=== PATIENT | male | born 1955 | race Caucasian/White ===

== ENCOUNTER 2023-03-06 11:59 | Outpatient (CLI) | payer MEDICARE, SELFPAY | END 2023-03-06 12:00 | disposition home or self-care (01) | PROVIDERS: PCP Family Medicine; Visit Provider Family Medicine | DX: R42 Dizziness and giddiness (principal); I16.0 Hypertensive urgency; Z13.21 Encounter for screening for nutritional disorder; R53.83 Other fatigue | CPT/HCPCS: 80053; 80061; 82043; 82306; 82570; 84443 ==

== ENCOUNTER 2023-03-08 18:49 | Emergency (ER) | payer MEDICARE, SELFPAY ==
[2023-03-08 19:02] VITALS: BP 156/83; PULSE 70; RESP 16; TEMP 36.6; O2SAT 96; BMI 31.4
--- NOTE | 2023-03-08 19:39 | ED_ITS ---
HPI - General Adult General Chief complaint: Unspecified Complaint, Adult Stated complaint: Side effects from BP medications Time Seen by Provider: 03/08/23 19:11 History of Present Illness HPI narrative: This 67-year-old male recently started on lisinopril and feels like he may be having some adverse effects related to it. He does report some episodes of lightheadedness and has a subjective feeling of being short of breath. He is states that he is measured his blood pressure and the lowest 1 he recorded while taking lisinopril was a systolic value of 127. He states that his pressures about ways been higher than this. A he reports that he has been smoking a couple packs a day for almost 50 years but has cut back to like 6 cigarettes per day since starting this medicine. He does not report any chest pain. He does arrive with normal vital signs and his blood pressure is a bit elevated. Related Data Previous Rx's Medication Instructions Recorded lisinopril 10 mg tablet 10 mg PO QDAY #30 tabs 03/06/23 Allergies Allergy/AdvReac Type Severity Reaction Status Date / Time No Known Drug Allergies Allergy Verified 03/08/23 19:08 Review of Systems Status of ROS: Reports: 10 or more systems reviewed and unremarkable except as noted in History and below Narrative: Constitutional: No fevers, no weight gain or loss. Eyes: No discharge. No vision changes. HENT: No congestion, no sore throat, no ear pain. Cardiovascular: No chest pain, no palpitations. Respiratory: No wheezes, no cough. He reports some mild shortness of breath. Gastrointestinal: No abdominal pain, no vomiting, no diarrhea. Genitourinary: No dysuria, no hematuria. Musculoskeletal: Normal range of motion. Skin: No rashes, no pruritis. Neurological: No weakness, sensory change, speech change. He reports some episodes of lightheadedness. Endo/Heme/Allergies: No bruising or bleeding. No polydipsia. Pysch: no suicidality, no anxiety, no insomnia. All other systems reviewed and are negative. [facility] Medical History (Updated 03/08/23 @ 19:45 by Maximo Galeana MD) Acute upper respiratory infection ?J06.9 - Acute upper respiratory infection, unspecified (ICD-10) Surgical History (Updated 03/04/23 @ 11:37 by Teo Bell) History of umbilical hernia repair ?Z98.890 - Other specified postprocedural states (ICD-10) ?Z87.19 - Personal history of other diseases of the digestive system (ICD-10) History of shoulder surgery ?Z98.890 - Other specified postprocedural states (ICD-10) History of inguinal hernia repair ?Z98.890 - Other specified postprocedural states (ICD-10) ?Z87.19 - Personal history of other diseases of the digestive system (ICD-10) Family History (Updated 03/04/23 @ 11:39 by Teo Bell) Mother Cancer Social History (Updated 03/04/23 @ 11:39 by Teo eBll) Narrative: cigarette smoker- 1ppd x 45 years does not use illicit drugs Smoking Status: Current every day smoker How often do you have a drink containing alcohol: 2-4 times a month AUDIT-C Alcohol total score: 2 Non-prescribed substance use: denies use Exam Narrative: Exam Narrative: Constitutional: Well-developed, well-nourished, no acute distress. HEENT: Normocephalic, atraumatic. Neck: Normal range of motion. Nontender. Supple. Heart: Regular. No murmurs. Normal rate. Intact distal pulses. Lungs: Clear to auscultation. No chest discomfort. No wheezes, rhonchi, or rales. Abdomen: Normal bowel sounds. Nontender. No rebound tenderness. Genitalia: Deferred. Back: No midline tenderness. Normal range of motion. Extremities: Normal range of motion. No injury. Skin: Intact. No rash. Warm. No erythema or pallor. Neurologic: No altered sensation. No weakness. Alert and oriented. Psychiatric: No suicidality. No anxiety or depression. No insomnia. Nursing notes and vitals signs are reviewed. Const: Vital Signs, click to edit/add: Vital Signs - 24 hr 03/08/23 19:02 Temperature 97.8 F Pulse Rate [Left P ulse Oximeter] 70 Respiratory Rate 16 Blood Pressure [Ri ght Upper Arm] 156/83 H Pulse Oximetry 96 Oxygen Delivery Me thod Room Air Course Vital Signs Vital signs: Initial Vital Signs Temperature 97.8 F 03/08/23 19:02 Temperature Source Temporal Artery Scan 03/08/23 19:02 Pulse Rate 70 03/08/23 19:02 Respiratory Rate 16 03/08/23 19:02 Blood Pressure 156/83 H 03/08/23 19:02 Blood Pressure Mean 107 H 03/08/23 19:02 Blood Pressure Position Sitting 03/08/23 19:02 Pulse Oximetry 96 03/08/23 19:02 Oxygen Delivery Method Room Air 03/08/23 19:02 Vital Signs Temperature 97.8 F 03/08/23 19:02 Pulse Rate 70 03/08/23 19:02 Respiratory Rate 16 03/08/23 19:02 Blood Pressure 156/83 H 03/08/23 19:02 Pulse Oximetry 96 03/08/23 19:02 Oxygen Delivery Method Room Air 03/08/23 19:02 Temperature 97.8 F 03/08/23 19:02 Pulse Rate 70 03/08/23 19:02 Respiratory Rate 16 03/08/23 19:02 Blood Pressure 156/83 H 03/08/23 19:02 Pulse Oximetry 96 03/08/23 19:02 Oxygen Delivery Method Room Air 03/08/23 19:02 Medical Decision Making MDM Narrative Medical decision making narrative: This patient started lisinopril a few days ago and states that he would prefer not to be on any kind of medicine for his blood pressure. He has cut back significantly on smoking but wants to resume smoking a couple packs a day. His blood pressure medication is not likely explaining his symptoms however he does report some episodes of lightheadedness. These may be times when his blood pressure is lower than what is needed for good perfusion. I advised him to record his blood pressures regularly and especially if feeling lightheaded for information that can be presented to a follow-up appointment with his primary physician. I did also discuss lab and imaging options with the patient today. In a process of shared decision-making he declined these. He states that he had a thorough workup recently when the medicine was prescribed for him. At the time of discharge the patient appears safe for outpatient management. The treatment plan is reviewed along with written and verbal return precautions. Reasons to return and the importance of close followup were also reviewed. Discharge Plan Discharge Clinical Impression: Nicotine dependence, Hypertension Patient Disposition: Home, Self-Care Condition: Stable Additional Instructions: Continue current plans. Record blood pressures regularly for follow-up appointment with primary physician. Return if worsening. Prescriptions: No Action lisinopril 10 mg tablet 10 mg PO QDAY Qty: 30 1RF Follow Up/Referrals: Nichole Cutler DO [Primary Care Provider] - Stand Alone Forms: [employer] Instructions
== END 2023-03-08 19:54 | disposition home or self-care (01) ==
LOC: ED 19:48
PROVIDERS: Emergency Provider Emergency Medicine Emergency Medical Services; PCP Family Medicine
DX: I10 Essential (primary) hypertension (principal); F17.200 Nicotine dependence, unspecified, uncomplicated
CPT/HCPCS: 99283; 99284

== ENCOUNTER 2023-03-20 16:01 | Outpatient (CLI) | payer MEDICARE, SELFPAY | END 2023-03-20 16:02 | disposition home or self-care (01) | LOC: NFLDREF 03-23 11:33 | PROVIDERS: PCP Family Medicine; Referring Provider Family Medicine; Visit Provider Family Medicine | DX: R74.01 Elevation of levels of liver transaminase levels (principal) | CPT/HCPCS: 80074; 82728; 83540; 83550; 85610; 87522 ==

== ENCOUNTER 2023-04-02 13:49 | Outpatient (CLI) | payer MEDICARE, SELFPAY | END 2023-04-02 13:50 | disposition home or self-care (01) | PROVIDERS: PCP Family Medicine; Visit Provider Family Medicine | DX: Z00.00 Encounter for general adult medical examination without abnormal findings (principal); R74.01 Elevation of levels of liver transaminase levels; I16.0 Hypertensive urgency | CPT/HCPCS: 80053; 87522 ==

== ENCOUNTER 2023-06-16 10:38 | Outpatient (CLI) | payer MEDICARE, SELFPAY ==
--- NOTE | 2023-06-16 11:00 | CRLHL7_ITS ---
For Patients: As a result of the Century Cures Act, medical imaging exams and procedure reports are released immediately into your electronic medical record. You may view this report before your referring provider. If you have questions, please contact your health care provider. INDICATION: ELEVATED LIVER ENZYMES COMPARISON: none TECHNIQUE: Real time heck scale imaging and color Doppler analysis was performed of the right upper quadrant. FINDINGS: The patient`s liver is of normal size and has diffusely coarsened echogenicity. There is a normal appearance of the hepatic IVC and proximal abdominal aorta. There is no evidence of ascites. The gallbladder is of normal size and there is layering echogenic sludge along with layering echogenic stones within the gallbladder lumen. The gallbladder wall measures 2 mm in thickness. The common bile duct is of normal size and measures 4 mm in diameter at the level of the shelby hepatis. The pancreas appears normal. There is no evidence of a stone or hydronephrosis within the right kidney. The right kidney measures 10.5 cm in length. IMPRESSION: Moderate diffuse hepatic steatosis. No intrahepatic mass or ascites. Moderate amount of sludge and stones within the gallbladder lumen compatible with cholelithiasis. Dictated by Tunde Mejia MD @ 06/16/2023 11:44:00 AM (Electronically Signed)
== END 2023-06-16 10:39 | disposition home or self-care (01) ==
LOC: US 10:39
PROVIDERS: PCP Family Medicine; Visit Provider Internal Medicine
DX: R74.8 Abnormal levels of other serum enzymes (principal); K76.0 Fatty (change of) liver, not elsewhere classified; K82.9 Disease of gallbladder, unspecified
CPT/HCPCS: 76705

== ENCOUNTER 2023-09-15 14:28 | Outpatient (CLI) | payer MEDICARE, SELFPAY | END 2023-09-15 14:29 | disposition home or self-care (01) | LOC: FRMREF 14:29 | PROVIDERS: PCP Family Medicine; Visit Provider Family Medicine | DX: R74.01 Elevation of levels of liver transaminase levels (principal) | CPT/HCPCS: 80053 ==

== ENCOUNTER 2023-10-27 11:41 | Outpatient (CLI) | payer MEDICARE, SELFPAY | END 2023-10-27 11:42 | disposition home or self-care (01) | PROVIDERS: PCP Family Medicine; Visit Provider Family Medicine | DX: R74.01 Elevation of levels of liver transaminase levels (principal); G60.9 Hereditary and idiopathic neuropathy, unspecified | CPT/HCPCS: 82607 ==

== ENCOUNTER 2023-12-12 16:15 | Outpatient (RCR) | payer MEDICARE, SELFPAY ==
--- NOTE | 2023-10-28 16:41 | PT.OPEX ---
PT [place] Outpatient Eval PT [facility] Outpatient Eval Start: 10/28/23 08:02 Freq: Status: Active Protocol: Document 10/28/23 08:03 AMS (Rec: 10/28/23 16:37 AMS [id number]) E-signed By Lory Garza PT Physical Therapy Outpatient Evaluation Insurance Information Recert Due Date 01/21/24 Insurance Name Medicare B Medical Diagnosis Bilateral shoulder pain Treating Diagnosis Right shoulder pain Left shoulder pain Muscle weakness Right shoulder stiffness Neck pain Referring MD Lindsey Cutler, DO Subjective Subjective Vimal is a 68yo patient who presents for complaints in his bilateral shoulders, right with h/o repair after multiple dislocations and left with likely repetitive motion injuries. No acute fall, injury, or trauma. He reports some radiating pain along the lateral aspect of both upper arms. The left pain now feels similar to his right, which has had limitations of motion in flexion, abduction, and extension since his repair. He denies significant weakness, but he is curious if this could be associated with his neck discomforts. He has known h/o occipital neuritis as well. In addition, Vimal has a PMH significant for poorly controlled blood pressures, tobacco dependence, alcohol use, and elevated liver enzymes. The patient's chronic medical conditions are poorly controlled, as noted. Patient has not been checking blood pressures regularly. He reports that his home readings 122/78-140s/90s. He does get around without difficulty and reports not exercising regularly, but he remains active. Patient is a smoker, pack-year history = 1/2-1ppd x 55yrs - with attempts to live a nonsmoking lifestyle noted. -Lindsey Cutler, 10/27, confirmed by patient Patient, right-hand dominant, is a 68-year-old male who presents to physical therapy with primary concern of R > L lateral shoulder pain and central neck pain. He states the right shoulder pain started gradually without injury about a year ago and he thinks this is related to arthritis. It started gradually getting worse about 1 month ago along with the left shoulder starting to bother him. Cannot recall any change in routine/injury around this time. Overall, it is getting better since then. He also identifies neck pain that started about 1 month ago without radiating symptoms or headaches. PMHx significant for right Bankart repair 45 years ago on right. 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 Denies numbness or tingling. Pain characteristics: achey, bilateral anterolateral upper arms radiating to elbow. Eases with rest. 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 Preferred Name Vimal Precautions Treatment Precautions/Contraindications Hypertension, current smoker, obesity Objective Other/Pertinent Objective POSTURE Forward head, rounded shoulders CERVICAL AROM Flexion: 50% limited Extension: 50% limited, pain in neck Right lateral flexion: 50% limited, pain on right Left lateral flexion: 50% limited, pain on right R rotation: 70 deg, pain in right neck L rotation: 65 deg, pain on left/into shoulder SHOULDER AROM (standing) Flexion: R 145* L 150* Abduction: R 145* L 165* Internal Rotation: R L1 L T8 External Rotation: R 55* L 70* *pain in lateral shoulder ipsilaterally SHOULDER PROM Full and pain-free on left, similar to AROM on right with pain end-range flexion/ abduction NECK/SHOULDER MMT: Shoulder flexion: R */5 L */5 Shoulder abduction: R */5 L */ 5 Shoulder External Rotation at 0 deg: R 4/5 L 4/5 Shoulder Internal Rotation at 0 deg: R 4/5 L 4/5 Elbow flexion: R 4/5 L 4/5 Elbow extension R 5/5, mild pain L 5/5 *limited by pain in 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 No TTP over posterior cervical spine. C-spine mobility not tested this visit. TX: Education provided on findings of examination, plan of care, frequency, duration and goals . Patient verbalizes understanding and agrees with plan of care. Patient instructed in initial home exercise program listed below with verbal and tactile cues provided for form. Patient demonstrates understanding with handout provided. Access Code: [email or web address] URL: [email or web address] Date: 10/28/2023 Prepared by: Lory Garza Exercises - Standing Shoulder Scaption with Resistance - 1 x daily - 4 x weekly - 2-3 sets - 10 reps - Standing Bicep Curls Supinated with Dumbbells - 1 x daily - 4 x weekly - 2-3 sets - 10 reps - 3-5 sec for lowering hold - 4 lb half gallon milk weight - Wall Push Up - 1 x daily - 4 x weekly - 2-3 sets - 10 reps - Shoulder Flexion Wall Slide with Towel - 1 x daily - 7 x weekly - 2-3 sets - 10-15 reps - 5 seconds hold - right shoulder Functional Test Performed & Score Quick DASH: 31.8/100 = 31.8% NDI: 850 = 16% Assessment Assessment/Impression Pt is a 68 -year-old male who presents with concerns of subacute on chronic R shoulder pain, subacute L shoulder pain/neck pain, and low to moderate severity and irritability. Signs and symptoms are likely indicating / consistent with bilateral rotator cuff/biceps tendinopathy. Symptoms do appear to have joint-related component on right side as well. PMHx significant for R Bankart repair 45 years ago, but pt reportedly recovered full ROM after this. 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 Denies radicular symptoms. Shoulder ROM did not affect cervical symptoms and vice versa with exception of one episode of left cervical rotation associated w/ left shoulder pain. Positive painful arc bilaterally and Speed's. Patient is appropriate for skilled physical therapy services to address the above deficits. Pt was agreeable with plan of care and goals established. 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 Neck: sleeping, lifting, work duties, reading Plan of Care Rehabilitation Potential Good Physical Therapy Goals In 2 sessions: Pt will demonstrate consistent HEP compliance to ensure progress in reaching established goals during course of care. In 8-10 sessions: Pt will demonstrate full right shoulder ROM w/ <2/10 pain for improved ability to perform work duties. Pt will demonstrate >4+/5 MMT with strength testing of bilateral shoulder for all major muscle groups for improved symptoms/self- management. Pt will improve Quick DASH by 20% for meaningful improvement of symptoms. Pt will improve cervical ROM by 25% in all directions for improved ability to perform daily ADLs. Coordination/Communication With Referral Source Treatment Plan/Direct Interventions Electrical Stimulation,Joint Mobilization,Manual Therapy, Neuromuscular Re-ed,Self-Care/ Home Management,Therapeutic Activities,Therapeutic Exercises Frequency/Duration 1x/week for 8-10 weeks Patient Will Be Discharged From Therapy Completion of LTG(s), Independent w/HEP, Independently Progressing Evaluation Billing Untimed Code Treatment Minutes 30 Complexity Moderate Certification Information Initial Certification Date 10/28/23 Ending Certification Date 01/21/24 Provider Signature Shows Agreement With POC & Medical Necessity Physician Signature & Date Requested Please Sign/Date Here Physician Comment/Change : Physician NPI Number #
== END 2024-02-05 09:18 | disposition home or self-care (01) ==
PROVIDERS: PCP Family Medicine; Visit Provider Family Medicine
DX: M25.511 Pain in right shoulder (principal); M25.512 Pain in left shoulder; M62.81 Muscle weakness (generalized); M25.611 Stiffness of right shoulder, not elsewhere classified; M54.2 Cervicalgia; Z51.89 Encounter for other specified aftercare
CPT/HCPCS: 97110; 97140; 97162